=== PATIENT | female | born 1990 | race Caucasian/White ===

== ENCOUNTER 2017-11-11 06:57 | Inpatient (IN) | payer OTHER ==
[2017-11-11] MEDS ORDERED: METHYLERGONOVINE 0.2 MG INJ IM ×2 (07:30→09:00)
[2017-11-11] MEDS ORDERED: OXYTOCIN 30 UNITS/LR 500 ML IV ×2 (07:30→09:00)
[2017-11-11] MEDS ORDERED: LIDOCAINE 1% (MPF) 30 ML INJ INJ (07:30)
[2017-11-11] MEDS ORDERED: BUTORPHANOL 2 MG INJ IV (07:30)
[2017-11-11] MEDS ORDERED: CARBOPROST 250 MCG INJ IM ×2 (07:30→09:00)
[2017-11-11] MEDS ORDERED: MISOPROSTOL 200 MCG TAB PR ×2 (07:30→09:00)
[2017-11-11] MEDS: LACTATED RINGER'S 1,000 ML IV (07:34)
[2017-11-11] MEDS: OXYTOCIN 30 UNITS/LR 500 ML IV ×2 (07:35→07:49)
[2017-11-11] MEDS: AMPICILLIN 2 GM/NS (PMX) 100 ML IV (07:36)
[2017-11-11 08:24] LABS: ADD MAN DIFF? NO
[2017-11-11 08:27] LABS: WHITE BLOOD COUNT 11.9 10^3/ul (4.8-10.8)
[2017-11-11 08:27] LABS: BASOPHIL # 0.1 10^3/ul (0.0-0.1); BASOPHILS % 0.8 % (0.0-2.0); EOSINOPHILS # 0.2 10^3/ul (0.0-0.5); EOSINOPHILS % 1.7 % (0.0-7.0); HEMATOCRIT 38.7 % (37.0-47.0); HEMOGLOBIN 13.3 g/dl (12.0-16.0); LYMPHOCYTES # 2.3 10^3/ul (0.8-2.9); LYMPHOCYTES % 19.6 % (15.0-51.0); MEAN CORPUSCULAR HEMOGLOBIN 31.9 pg (29.0-33.0); MEAN CORPUSCULAR HGB CONC 34.4 g/dl (32.0-37.0); MEAN CORPUSCULAR VOLUME 92.8 fl (82.0-101.0); MEAN PLATELET VOLUME 11.1 fl (7.4-10.4); MONOCYTE # 0.6 10^3/ul (0.3-0.9); NEUTROPHIL # 8.6 10^3/ul (1.6-7.5); NEUTROPHILS % 72.5 % (39.0-77.0); PLATELET COUNT 224 10^3/UL (140-415); RED BLOOD COUNT 4.17 10^6/ul (4.20-5.40); RED CELL DISTRIBUTION WIDTH 12.5 % (11.5-14.5)
[2017-11-11 08:51] LABS: INR 0.89; PARTIAL THROMBOPLASTIN TIME 28.1 Sec (25.0-35.0); PROTIME 12.1 Sec (11.9-14.9); PT RATIO 0.9
[2017-11-11] MEDS ORDERED: HYDROCODONE/APAP (5/325) TAB PO (09:00)
[2017-11-11] MEDS ORDERED: ACETAMINOPHEN 325 MG TAB PO (09:00)
[2017-11-11 09:40] LABS: HEPATITIS B SURFACE ANTIGEN NEGATIVE (NEGATIVE)
[2017-11-11] MEDS: AMPICILLIN 1 GM/NS (PMX) 50 ML IV ×5 (11:30→23:30)
[2017-11-11 12:44] LABS: HIV 1&2 ANTIBODY NEGATIVE (NEGATIVE)
[2017-11-11] MEDS: BENZOCAINE 20% 56 ML SPRAY TOP (13:02)
[2017-11-11] MEDS: DIBUCAINE 1% 30 GM OINT PR (13:03)
[2017-11-11] MEDS: WITCH HAZEL/GLYCERIN PAD PR (13:03)
[2017-11-11] MEDS: LANOLIN 7 GM TUBE TOP (13:04)
[2017-11-11] MEDS: SENNA/DOCUSATE NA (8.6MG/50MG) TAB PO ×2 (13:05→21:23)
[2017-11-11] MEDS: IBUPROFEN 600 MG TAB PO ×2 (13:05→18:15)
[2017-11-11] MEDS: LACTATED RINGER'S 1,000 ML IV* ×2 (15:55→16:46)
[2017-11-11 22:01] LABS: RAPID PLASMA REAGIN NONREACTIVE (NR)
[2017-11-12] MEDS: IBUPROFEN 600 MG TAB PO ×4 (00:30→18:07)
[2017-11-12] MEDS: LACTATED RINGER'S 1,000 ML IV* ×3 (00:46→16:46)
[2017-11-12] MEDS: AMPICILLIN 1 GM/NS (PMX) 50 ML IV (03:30)
[2017-11-12 07:40] LABS: ADD MAN DIFF? NO
[2017-11-12 07:47] LABS: BASOPHIL # 0.1 10^3/ul (0.0-0.1); BASOPHILS % 0.5 % (0.0-2.0); EOSINOPHILS # 0.1 10^3/ul (0.0-0.5); EOSINOPHILS % 0.9 % (0.0-7.0); HEMATOCRIT 34.2 % (37.0-47.0); HEMOGLOBIN 11.5 g/dl (12.0-16.0); LYMPHOCYTES # 1.9 10^3/ul (0.8-2.9); LYMPHOCYTES % 17.2 % (15.0-51.0); MEAN CORPUSCULAR HEMOGLOBIN 31.4 pg (29.0-33.0); MEAN CORPUSCULAR HGB CONC 33.6 g/dl (32.0-37.0); MEAN CORPUSCULAR VOLUME 93.4 fl (82.0-101.0); MEAN PLATELET VOLUME 11.2 fl (7.4-10.4); MONOCYTE # 0.5 10^3/ul (0.3-0.9); MONOCYTES % 4.8 % (0.0-11.0); NEUTROPHIL # 8.6 10^3/ul (1.6-7.5); NEUTROPHILS % 76.2 % (39.0-77.0); PLATELET COUNT 187 10^3/UL (140-415); RED BLOOD COUNT 3.66 10^6/ul (4.20-5.40); RED CELL DISTRIBUTION WIDTH 12.9 % (11.5-14.5)
[2017-11-12 07:47] LABS: WHITE BLOOD COUNT 11.3 10^3/ul (4.8-10.8)
[2017-11-12] MEDS: BENZOCAINE 20% 56 ML SPRAY TOP (08:20)
[2017-11-12] MEDS: SENNA/DOCUSATE NA (8.6MG/50MG) TAB PO ×2 (08:20→20:37)
[2017-11-13] MEDS: IBUPROFEN 600 MG TAB PO ×3 (00:16→11:38)
[2017-11-13] MEDS: LACTATED RINGER'S 1,000 ML IV* (00:46)
[2017-11-13] MEDS: DIPHTH/TET/ACEL PERTUSS (ADULT) 0.5 ML VIAL IM* (07:40)
[2017-11-13] MEDS: SENNA/DOCUSATE NA (8.6MG/50MG) TAB PO (08:50)
[2017-11-13 12:17] LABS: RUBELLA ANTIBODY - IGG 0.97 index
[2017-11-13 14:37] LABS: RUBELLA ANTIBODY - IGM <20.00 AU/mL
== END 2017-11-13 14:25 | disposition home or self-care (01) | DRG 775 ==
LOC: OBT 06:57 → L-D 07:17 → PP1 10:13
PROVIDERS: Obstetrics & Gynecology
PROC: 10E0XZZ Delivery of Products of Conception, External Approach (ICD-10-PCS; principal; 2017-11-11)
PROC: 0HQ9XZZ Repair Perineum Skin, External Approach (ICD-10-PCS; 2017-11-11)
DX: O70.0 First degree perineal laceration during delivery (principal); Z3A.38 38 weeks gestation of pregnancy; Z37.0 Single live birth
CPT/HCPCS: 85025; 85610; 85730; 86592; 86703; 86762; 86900; 86901; 87340